=== PATIENT | female | born 1970 ===

== ENCOUNTER → 2019-08-26 | Day surgery (SDC) | payer OTHER ==
[~2019-08-26] MED LIST: PERCOCET 5-3251 EACH PO; RECTICARE30 GM TOP
== END | disposition home or self-care (01) ==
LOC: ADM 08-22 12:00 → CIR.AMB 05:23
DX: K64.1 Second degree hemorrhoids (principal); K64.8 Other hemorrhoids; K64.4 Residual hemorrhoidal skin tags